=== PATIENT | male | born 1960 | race Two or more races ===

== ENCOUNTER 2021-04-08 03:29 | Emergency (ER) | payer SELFPAY ==
[2021-04-08 04:02] VITALS: BMI 31.3
[2021-04-08] MEDS ORDERED: ACETAMINOPHEN 1000 MG/100 ML VIAL (NON FORMULARY) IVPB ONE (04:24)
[2021-04-08] MEDS ORDERED: SODIUM CHLORIDE 0.9% 500 ML INFUS.BAG IV ONE (04:24)
[2021-04-08 04:44] LABS: BASO % 0.3 % (0-2.0); EOS % 0.1 % (0-4.5); HEMATOCRIT 41.9 % (35.4-49); HEMOGLOBIN 14.6 GM/dL (11.7-16.9); LYMPH % 5.8 % (8-40); MCH 30.3 pg (25.7-33.7); MCHC 34.8 g/dl (32.0-35.9); MEAN CELL VOLUME 87.1 fl (80-96); MEAN PLT VOLUME 8.4 fl (7.5-11.1); MONO % 2.1 % (3.8-10.2); NEUT % 91.7 % (42.8-82.8); PLATELET COUNT 175 10^3/uL (134-434); RBC 4.81 M/mm3 (4.00-5.60); RDW 13.2 % (11.9-15.9); WHITE BLOOD COUNT 11.6 K/mm3 (4.0-10.0)
[2021-04-08] MEDS ORDERED: ONDANSETRON 4 MG/2 ML VIAL IVPUSH ONE (04:44)
[2021-04-08] MEDS ORDERED: morphine CARPU-JECT 4 MG/1 ML DISP.SYRIN IVPUSH ONE (04:49)
[2021-04-08 05:04] LABS: CHLORIDE 103 mmol/L (98-107); SODIUM 137 mmol/L (136-145)
[2021-04-08 05:06] LABS: CALCIUM 8.6 mg/dL (8.5-10.1)
[2021-04-08 05:07] LABS: ALBUMIN 3.4 g/dl (3.4-5.0); ANION GAP 8 MMOL/L (8-16); CO2 26 mmol/L (21-32); GLUCOSE,RANDOM 255 mg/dL (74-106); INR 0.96 (0.83-1.09); LIPASE 164 U/L (73-393); PROTHROMBIN TIME (PATIENT) 11.6 SEC (9.7-13.0)
[2021-04-08 05:09] LABS: ACTIVATED PTT 30.3 SECONDS (25.2-36.5)
[2021-04-08 05:10] LABS: CREATININE 1.4 mg/dL (0.55-1.3); SGOT/AST 28 U/L (15-37); SGPT/ALT 54 U/L (13-61)
[2021-04-08 05:11] LABS: BILIRUBIN,TOTAL 0.7 mg/dL (0.2-1)
[2021-04-08 05:13] LABS: ALK PHOS 143 U/L (45-117)
[2021-04-08] MEDS ORDERED: morphine SULFATE 4 MG/ML VIAL ONE (05:35)
[2021-04-08 08:30] LABS: EPI CELLS 1 /uL (0-25.1); HYALINE CASTS 1 /uL (0-3.1); PH,URINE 7.5 (5.0-8.0); URINE APPEARANCE CLEAR; URINE BACTERIA 4 /uL (0-1359); URINE BILIRUBIN NEGATIVE (NEGATIVE); URINE COLOR YELLOW; URINE GLUCOSE (UA) 3+ (NEGATIVE); URINE KETONE 1+ (NEGATIVE); URINE LEUK ESTERASE NEGATIVE (NEGATIVE); URINE NITRITE NEGATIVE (NEGATIVE); URINE PROTEIN 2+ (NEGATIVE); URINE RBC 3 /uL (0-23.9); URINE UROBILINOGEN 0.2 mg/dL (0.2-1.0); URINE WBC 2 /uL (0-25.8)
[2021-04-08 12:52] VITALS: BP 172/87; PULSE 58; TEMP 98.7
== END 2021-04-08 12:52 | disposition home or self-care (01) ==
LOC: JER 03:29
PROC: 3E0333Z Introduction of Anti-inflammatory into Peripheral Vein, Percutaneous Approach (ICD-10-PCS; principal; 2021-04-08)
PROC: 3E033NZ Introduction of Analgesics, Hypnotics, Sedatives into Peripheral Vein, Percutaneous Approach (ICD-10-PCS; 2021-04-08)
PROC: 3E033GC Introduction of Other Therapeutic Substance into Peripheral Vein, Percutaneous Approach (ICD-10-PCS; 2021-04-08)
DX: R10.11 Right upper quadrant pain (principal)
CPT/HCPCS: 36415; 76700-TC; 80053; 81003; 82962; 83605; 83690; 84484; 85025; 85610; 85730; 93005; 93010; 99285-25; J0131